=== PATIENT | male | born 1945 | race Caucasian/White ===

== ENCOUNTER 2024-04-30 06:16 | Day surgery (SDC) | payer MEDICARE ==
[~2024-04-30 06:16] MED LIST: Acetaminophen 1,000 MG in Premix Bag 1 BAG IV SCH
[2024-04-30] MEDS ORDERED: Morphine 10 MG/ML SDV ONE (06:52)
[2024-04-30] MEDS ORDERED: propofoL 100 ML ONE (06:53)
[2024-04-30] MEDS ORDERED: Ropivacaine 0.5% 5 MG/ML 30 ML SDV ONE (06:55)
[2024-04-30] MEDS ORDERED: Bupivacaine 0.25% 30 ML SDV ONE (06:55)
[2024-04-30] MEDS ORDERED: Ondansetron 4 MG/2 ML SDV ONE (06:56)
[2024-04-30] MEDS ORDERED: fentaNYL 100 MCG/2 ML SDV ONE (06:56)
[2024-04-30] MEDS ORDERED: Lidocaine 2% 5 ML SDV ONE (06:56)
[2024-04-30] MEDS: Lactated Ringers 1,000 ML IV SCH (07:01)
[2024-04-30] MEDS: Pregabalin 75 MG Cap PO SCH (07:01)
[2024-04-30] MEDS ORDERED: Dexamethasone 4 MG/ML 5 ML MDV ONE (07:05)
[2024-04-30] MEDS ORDERED: Rocuronium Bromide 50 MG/5 ML Syringe ONE ×2 (07:05→08:30)
[2024-04-30] MEDS ORDERED: Ondansetron 4 MG/2 ML SDV IVPUSH PRN (07:09)
[2024-04-30] MEDS ORDERED: HYDROmorphone 1 MG/ML Syringe IVPUSH PRN (07:09)
[2024-04-30] MEDS ORDERED: Morphine 2 MG/ML SYRINGE IVPUSH PRN (07:09)
[2024-04-30] MEDS ORDERED: droPERidol 5 MG/2 ML SDV IVPUSH PRN (07:09)
[2024-04-30] MEDS ORDERED: Metoclopramide 10 MG/2 ML SDV IVPUSH PRN (07:09)
[2024-04-30] MEDS ORDERED: Naloxone 0.4 MG/ML SDV IVPUSH PRN (07:09)
[2024-04-30] MEDS ORDERED: Albuterol 0.083% 2.5 MG/3 ML Neb Soln NEB PRN (07:09)
[2024-04-30] MEDS ORDERED: fentaNYL 50 MCG/ML SDV IVPUSH PRN (07:09)
[2024-04-30] MEDS ORDERED: Bupivacaine 0.5% 30 ML SDV ONE (07:11)
[2024-04-30] MEDS ORDERED: ceFAZolin 2 GM Vial ONE (07:53)
[2024-04-30] MEDS ORDERED: Phenylephrine HCl In 0.9% NaCl 1 MG/10 ML Syringe ONE ×2 (08:02→08:57)
[2024-04-30] MEDS ORDERED: Magnesium Sulfate (4.06 MEQ/ML) 5 GM/10 ML SDV ONE (08:05)
[2024-04-30] MEDS ORDERED: Sugammadex Sodium 200 MG/2 ML VIAL IV ONE (08:29)
[2024-04-30] MEDS ORDERED: Ketorolac 30 MG/ML SDV ONE (08:29)
[2024-04-30] MEDS ORDERED: ceFAZolin 2 GM in Sodium Chloride 0.9% 50 ML IV ONE (08:30)
[2024-04-30] MEDS ORDERED: Water For Injection, Sterile 20 ML ONE (08:40)
[2024-04-30] MEDS ORDERED: dexmedeTOMIDine HCl 200 MCG/2 ML SDV ONE (08:40)
[2024-04-30] MEDS ORDERED: Lidocaine 2% 11 ML Jelly Filled Syringe ONE (09:10)
== END 2024-04-30 11:35 | disposition home or self-care (01) ==
LOC: MW.SDS 06:16
PROVIDERS: ATTEND Surgery
DX: K40.90 Unilateral inguinal hernia, without obstruction or gangrene, not specified as recurrent (principal); I10 Essential (primary) hypertension; Z88.0 Allergy status to penicillin; Z91.09 Other allergy status, other than to drugs and biological substances; Z79.899 Other long term (current) drug therapy; Z87.891 Personal history of nicotine dependence
CPT/HCPCS: 49650; 64488; A9270; J0131; J0665; J0690; J1100; J1885; J2270; J2371; J2704; J2795; J3010; J3475; J3490; J7120; 00830; 99100; C1781; J2405